=== PATIENT | male | born 1960 | race Caucasian/White ===

== ENCOUNTER 2017-08-08 12:13 | Emergency (ER) | payer SELFPAY ==
[~2017-08-08] VITALS: Ht 188 cm; Wt 95.5 kg
[2017-08-08 12:14] VITALS: BP 159/94; PULSE 79; RESP 16; TEMP 97.8; O2SAT 98
[2017-08-08] MEDS ORDERED: PROPARACAINE HCL 0.5% OPHT SOLN 15 ML BTL EACH EYE ONE (12:45)
[2017-08-08] MEDS ORDERED: ERYTOIN10 RIGHT EYE (13:26)
--- NOTE | 2017-08-08 13:27 | PD ---
HPI Chief Complaint: Eye Problems/Injury Time Seen by Provider: 12:21 Travel History International Travel<30 days: No Contact w/Intl Traveler<30days: No Traveled to known affect area: No History of Present Illness HPI 56-year-old patient here with foreign body sensation to the right eye. He works as a traveling construction superintendent and felt a piece of drywall fly into his eye today. He reports mild blurred vision due to tearing. Pain is aggravated by sunlight and alleviated by closing the lid. Symptom severity is moderate. PFSH Past Medical History Depression: Yes Diminished Hearing: No Hepatitis: Yes (C) Inguinal Hernia: Yes Psychiatric: Yes Past Surgical History Abdominal Surgery: Yes (HERNIA REPAIR) Oral Surgery: Yes (FX JAW) Other Surgery: Yes Social History Alcohol Use: Yes (12 BEERS A DAY) Tobacco Use: Yes (1PPD) Substance Use: Yes Allergies-Medications (Allergen,Severity, Reaction): Coded Allergies: No Known Allergies (Verified Adverse Reaction, Unknown, 07/28/17) Reported Meds & Prescriptions Reported Meds & Active Scripts Active Erythromycin Opth Oint 5 Mg/Gm Oint 1 Applic RIGHT EYE QID Review of Systems Except as stated in HPI: all other systems reviewed are Neg General / Constitutional: No: Fever Eyes: Positive: Redness, Foreign Body Sensation, Pain, Tearing HENT: No: Headaches Cardiovascular: No: Chest Pain or Discomfort Respiratory: No: Shortness of Breath Gastrointestinal: No: Abdominal Pain Genitourinary: No: Dysuria Physical Exam Narrative GENERAL: Alert and well-appearing male. Mild distress. SKIN: Warm and dry. HEAD: Normocephalic. EYES: Right eye mildly injected. No hyphema. Pupils equal, round, reactive to light. EOMs intact. No hyphema. Small speck of metal embedded on the surface of the cornea located at 7:00 over the iris. Visual acuity 20/40 right eye NECK: Supple, trachea midline. No JVD or lymphadenopathy. CARDIOVASCULAR: Regular rate and rhythm RESPIRATORY: Breath sounds equal bilaterally. No accessory muscle use. Data Data Last Documented VS Vital Signs Date Time Temp Pulse Resp B/P (MAP) Pulse Ox O2 Delivery O2 Flow Rate FiO2 08/08/17 12:14 97.8 79 16 159/94 (115) 98 Room Air Orders Orders Proparacaine 0.5% Opth Soln (Alcaine 0.5 (08/08/17 12:45) Erythromycin 0.5% Opth Oint (Ilotycin 0. (08/08/17 13:30) Ed Discharge Order (08/08/17 13:29) [facility] Medical Decision Making Medical Screen Exam Complete: Yes Emergency Medical Condition: Yes Differential Diagnosis Corneal foreign body, corneal abrasion, corneal ulcer Narrative Course 56-year-old male with small piece of metal superficially embedded into the right cornea. Proparacaine drops applied to the right eye and the foreign body was easily removed with needle tip and cotton Q-tip. Patient tolerated the procedure well. Erythromycin ointment applied to the eye. Patient is to follow -up with ophthalmology. Return precautions discussed. Patient verbalizes understanding and agrees to plan Diagnosis Primary Impression: Corneal foreign body Qualified Codes: T15.01XA - Foreign body in cornea, right eye, initial encounter Referrals: Viky Parker MDcargo trimmer Additional Instructions: Antibiotic ointment as directed. Follow-up with the manager research Scripts Erythromycin Opth Oint (Erythromycin Opth Oint) 5 Mg/Gm Oint 1 APPLIC RIGHT EYE QID for Infection, #1 TUBE 0 Refills Prov: Natalie Steven 08/08/17 Disposition: 01 DISCHARGE HOME Condition: Stable Natalie Steven Aug 08, 2017 13:27
[2017-08-08] MEDS ORDERED: ERYTHROMYCIN 0.5% OPTH OINT 3.5 GM TUBO RIGHT EYE ONE (13:30)
== END 2017-08-08 14:17 | disposition home or self-care (01) ==
LOC: NEPK 12:13
DX: T15.01XA Foreign body in cornea, right eye, initial encounter (principal); Y93.H3 Activity, building and construction; Y99.0 Civilian activity done for income or pay
CPT/HCPCS: 99283